=== PATIENT | female | born 1950 | race Caucasian/White ===

== ENCOUNTER 2021-08-07 15:36 | Emergency (ER) | payer MEDICARE, OTHER ==
[2021-08-07 15:50] VITALS: BP 116/70
[2021-08-07] MEDS ORDERED: DEXAMETHASONE 10 MG/ML VIAL PO STA (16:23)
[2021-08-07] MEDS ORDERED: CHERRY SYRUP 10 ML UDC PO ONE (16:23)
[2021-08-07] MEDS ORDERED: PSEUDOEPHEDRINE 30 MG TABLET PO STA (16:23)
--- NOTE | 2021-08-07 16:26 | ED Physician Documentation ---
History of Present Illness - Stated complaint Stated Complaint: LOSS OF HEARING - Chief complaint Chief Complaint: Heent - History obtained from History obtained from: Patient - History of Present Illness Timing: Today Pain level max: 3 Pain level now: 2 - Additonal information Additional information: Patient is a 71-year-old female who presents to the emergency department with decreased hearing and pain in both ears. She is visiting from [place]. No fevers. No chills. No rhinorrhea or congestion. Nothing makes it better or worse. Review of Systems Constitutional: denies: Fever, Chills Nose: denies: Rhinorrhea / runny nose, Congestion Throat: denies: Sore throat Respiratory: denies: Cough, Wheezing GI: denies: Abdominal Pain, Vomiting PD PAST MEDICAL HISTORY - Past Medical History Past Medical History: No - Past Surgical History Past Surgical History: No - Present Medications Home Medications: Ambulatory Orders Medication Instructions Recorded Confirmed Cetirizine HCl/Pseudoephedrine 1 each PO BID PRN #30 ea 08/07/21 [Zyrtec-D Tablet] predniSONE [Deltasone] 40 mg PO DAILY #10 tablet 08/07/21 - Allergies Allergies/Adverse Reactions: Allergies Allergy/AdvReac Type Severity Reaction Status Date / Time No Known Drug Allergies Allergy Verified 08/07/21 16:00 - Living Situation Living Arrangement: reports: At home - Social History Does the pt have substance abuse?: No - Family History Family history: reports: Non contributory PD ED PE NORMAL - Vitals Vital signs reviewed: Yes - General General: Alert and oriented X 3, No acute distress - HEENT HEENT: Moist mucous membranes, Pharynx benign (Posterior pharyngeal erythema without tonsillar exudates.), Other (Bilateral tympanic membranes are retracted, nonmobile. No fluid present.) - Neck Neck: Supple, no meningeal sign - Derm Derm: Warm and dry - Neuro Neuro: Alert and oriented X 3 Results - Vitals Vitals: Vital Signs - 24 hr 08/07/21 15:45 Temperature 36.5 C Heart Rate 80 Blood Pressure 116/70 O2 Saturation 98 Oxygen O2 Source Room air PD MEDICAL DECISION MAKING - ED course Complexity details: considered differential, d/w patient ED course: Patient with retracted tympanic membranes bilaterally. Will place on decongestants and steroids to see if they can decrease the swelling in the eustachian tubes to allow equalization of pressure. Patient will follow up with her doctor for further care. No infection. Patient counseled regarding signs and symptoms for which I believe and urgent re-evaluation would be necessary. Patient with good understanding of and agreement to plan and is comfortable going home at this time This document was made in part using voice recognition software. While efforts are made to proofread this document, sound alike and grammatical errors may occur. Departure - Departure Disposition: 01 Home, Self Care Clinical Impression: Retracted ear drum Qualifiers: Laterality: bilateral Qualified Code(s): H73.893 - Other specified disorders of tympanic membrane, bilateral Condition: Good Instructions: ED Otitis Media Serous Adult Follow-Up: your,doctor in 1week if not better [Other] Prescriptions: predniSONE [Deltasone] 40 mg PO DAILY #10 tablet Cetirizine HCl/Pseudoephedrine [Zyrtec-D Tablet] 1 each PO BID PRN #30 ea PRN Reason: nasal congestion Comments: Your prescriptions were sent to [facility] in [place]. This should improve over the next 24 to 48 hours. Once the eustachian tubes declogged, the pressure should equalize and your hearing should return. There are no signs of infection. Discharge Date/Time: 08/07/21 16:35
== END 2021-08-07 16:35 | disposition home or self-care (01) ==
LOC: ED 15:36
DX: H73.893 Other specified disorders of tympanic membrane, bilateral (principal)
CPT/HCPCS: 99282; A9270